=== PATIENT | male | born 1955 | race Caucasian/White ===

== ENCOUNTER 2019-03-17 23:41 | Inpatient (IN) ==
[2019-03-17] MEDS ORDERED: ZOFRAN ONE (23:49)
[2019-03-17] MEDS ORDERED: MORPHINE IV ONE (23:50)
[2019-03-17] MEDS ORDERED: ZOFRAN IV ONE (23:51)
[2019-03-18 00:04] LABS: BASO# 0.05 X1000 (0.0-0.2); BASO% 0.3 % (0.0-0.8); EOS# 0.38 X1000 (0.0-0.7); EOS% 2.5 % (0.0-10.0); HEMATOCRIT 43.8 % (42.0-52.0); HEMOGLOBIN 14.8 g/dL (14.0-18.0); IMM GRAN# 0.04 X1000 (0.0-0.04); IMM GRAN% 0.3 % (0.0-0.5); LYMPH# 3.18 X1000 (1.2-3.4); MCHC 33.8 g/dL (33-37); MONO# 1.93 X1000 (0.11-0.59); MONO% 12.7 % (1.7-9.3); MPV 9.2 FL (7.4-10.4); NEUT# 9.56 X1000 (1.4-6.5); NEUT% 63.2 % (42.2-75.2); PLT 287 X1000 (130-400); RBC 5.28 XMIL (4.7-6.1); RDW 14.5 % (11.5-14.5); WBC 15.14 X1000 (4.8-10.8)
--- NOTE | 2019-03-18 00:09 | PROVIDER DOCUMENTATION ---
This chart was entered by Millie Varela Scribe, acting as scribe for Иван Espinoza MD. HPI-Chest Pain - General Chief Complaint: Chest Pain Stated Complaint: CHEST PAINS Time Seen by Provider: 03/17/19 23:48 Source: patient Allergies/Adverse Reactions: Patient Allergies Allergy/AdvReac Type Severity Reaction Status Date / Time No Known Allergies Allergy Verified 03/17/19 23:52 - History of Present Illness-CP Nature of Presenting Problem: 63 yowm c/o severe 10/10 sharp back pain btw shoulder blades since 1100am today with associated dyspnea, abd pain and diaphoresis. 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 pt has htn, forgot to take rx tonight. pt denies dvt. pt is obese, nonsmoker, no alcohol or drug use. Location: reports: shoulder (btw shoulder blades), back, abdomen Quality of Pain: reports: sharp Severity in ED: mild Onset/Duration: this morning Timing: still present Context/Activities at Onset: reports: none Review of Systems - Adult - REVIEW OF SYSTEMS - ADULT Constitutional: reports: no symptoms reported Eyes: reports: no symptoms reported Ears, Nose, Mouth & Throat: reports: no symptoms reported Cardiovascular: reports: see HPI, chest pain. denies: heart murmur, irregular heart rate, orthopnea Respiratory: reports: see HPI, cough (minimal), dyspnea on exertion. denies: excessive sputum production, hemoptysis, wheezing Gastrointestinal: reports: see HPI, abdominal pain. denies: diarrhea, nausea, vomiting Genitourinary: reports: no symptoms reported Musculoskeletal: reports: see HPI, back pain. denies: joint pain, muscle weakness, neck pain Integumentary: reports: no symptoms reported Neurological: reports: no symptoms reported Psychiatric: reports: no symptoms reported Endocrine: reports: no symptoms reported Hematologic/Lymphatic: reports: no symptoms reported Allergic/Immunologic: reports: no symptoms reported All Other Systems: Reviewed and Negative Past History - Adult - PAST MEDICAL HISTORY-ADULT Review of Records: reports: Old Records Reviewed, Nursing Assessment Review, Medications Reviewed, Social history reviewed & non-contributory. Major Childhood Illnesses: reports: denies history Cardiovascular: reports: HTN Respiratory: reports: denies history Gastrointestinal: reports: denies history Obstetrical/Gynecological: reports: denies history Genitourinary: reports: denies history Musculoskeletal: reports: denies history Neurological: reports: denies history Endocrine/Immune: reports: denies history Other Conditions: reports: denies history - PRIOR SURGERIES/PROCEDURES Surgical/Procedure History: reports: none - IMMUNIZATION STATUS Childhood Immunizations: See Nurse Assessment Flu Vaccine: See Nurse Assessment - FAMILY HISTORY Family History: reviewed, not pertinent - SOCIAL HISTORY Smoking: non-smoker Substance Use: none/never Physical Exam-General - PHYSICAL EXAM-ADULT Initial Vital Signs Reviewed: Yes - CONSTITUTIONAL General Appearance: alert, moderate distress, obese, anxious. negative: cachetic, lethargic, slow to respond - EYES Eyes: PERRL/EOMI, pink conjunctivae - HEAD, EARS, NOSE, MOUTH & THROAT HENMT: normocephalic/atraumatic, moist mucous membranes, normal ENT inspection - NECK Neck: non-tender, full range of motion, supple, normal inspection - RESPIRATORY Respiratory: chest non-tender, lungs clear, normal breath sounds - CARDIOVASCULAR Cardiovascular: normal peripheral pulses, no edema, no gallop, no JVD, no murmur , tachycardia. negative: regular rate, rhythm, JVD, bradycardia - GASTROINTESTINAL (ABDOMEN) Abdominal Exam: normal bowel sounds, non tender, soft, no organomegaly, no pulsatile mass. negative: distended, guarding, rigid - LYMPHATIC Lymphatic: no adenopathy - MUSCULOSKELETAL Back Exam: normal inspection, no CVA tenderness, no vertebral tenderness. negative: decreased range of motion, ecchymosis, vertebral tenderness Extremity: normal capillary refill, swelling (swelling tenderness over left lower extremity), tenderness Peripheral Pulses: radial (R): 2+, radial (L): 2+ - SKIN Integumentary: normal color, normal turgor, warm/dry, diaphoresis. negative: ecchymosis, erythema, swelling, tenderness - NEUROLOGIC Neurologic: grossly normal, no motor/sensory deficits - PSYCHIATRIC Psych/Mental Status: oriented x 3, anxious. negative: normal mood/affect, normal thought content, normal thought process, depressed affect, tearful - HEART Score HEART Score: History: Slightly Suspicious HEART Score: ECG: Normal HEART Score: Age: 45-65 Years HEART Score: Risk Factors for Atherosclerotic Disease: > or = 3 Risk Factors or History of Atherosclerotic Disease HEART Score: Troponin: < or = Normal Limit Total HEART Score:: 3 Progress - PLAN OF CARE/RESULTS Progress/Plan/Lab Results: Vital Signs - 8 hr 03/17/19 23:46 03/18/19 00:41 03/18/19 01:16 Temperature 98.9 F Pulse Rate 129 H 120 H 114 H Respiratory Rate 34 H 23 20 Blood Pressure 115/98 135/91 140/83 O2 Sat by Pulse Oximetry 94 L 93 L 92 L 03/18/19 01:40 Temperature Pulse Rate 112 H Respiratory Rate 18 Blood Pressure 120/76 O2 Sat by Pulse Oximetry 92 L Laboratory Results - last 24 hr 03/17/19 03/17/19 03/17/19 23:45 23:45 23:45 WBC RBC Hgb Hct MCV MCH MCHC RDW Std Deviation Plt Count MPV Immature Gran % (Auto) Neut % (Auto) Lymph % (Auto) Wagoner % (Auto) Eos % (Auto) Baso % (Auto) Immature Gran # (Auto) Neut # (Auto) Lymph # (Auto) Wagoner # (Auto) Eos # (Auto) Baso # (Auto) PT 13.5 INR 0.98 D-Dimer, Quantitative 3.36 H Sodium Potassium Chloride Carbon Dioxide Anion Gap BUN Creatinine Estimated GFR/1.73 m2 BUN/Creatinine Ratio Glucose Calculated Osmolality Calcium Total Bilirubin AST ALT Alkaline Phosphatase Creatine Kinase 113 Troponin T < 0.010 Ugt-M-Pzkcaafxaxm Pept Total Protein Albumin Globulin Albumin/Globulin Ratio 03/17/19 03/17/19 03/17/19 23:45 23:45 23:45 WBC 15.14 H RBC 5.28 Hgb 14.8 Hct 43.8 MCV 83.0 MCH 28.0 MCHC 33.8 RDW Std Deviation 14.5 Plt Count 287 MPV 9.2 Immature Gran % (Auto) 0.3 Neut % (Auto) 63.2 Lymph % (Auto) 21.0 Wagoner % (Auto) 12.7 H Eos % (Auto) 2.5 Baso % (Auto) 0.3 Immature Gran # (Auto) 0.04 Neut # (Auto) 9.56 H Lymph # (Auto) 3.18 Wagoner # (Auto) 1.93 H Eos # (Auto) 0.38 Baso # (Auto) 0.05 PT INR D-Dimer, Quantitative Sodium 139 Potassium 4.0 Chloride 102 Carbon Dioxide 24 L Anion Gap 13 BUN 15 Creatinine 1.3 H Estimated GFR/1.73 m2 56 BUN/Creatinine Ratio 12 Glucose 115 H Calculated Osmolality 279 Calcium 9.0 Total Bilirubin 0.60 AST 16 ALT 19 Alkaline Phosphatase 92 Creatine Kinase Troponin T Tns-M-Telnlvninlz Pept 31 Total Protein 8.1 Albumin 4.3 Globulin 4.0 Albumin/Globulin Ratio 1.0 Orders Category Date Time Status Misc. NRSG Communication Order DIRECTED Care 03/18/19 00:38 Active Saline Loc NOW Care 03/17/19 23:57 Active CHEST-PORTABLE [RAD] Stat Exams 03/17/19 23:[address] ABD/PELVIS/PULM ARTERIES [CT] Stat Exams 03/18/19 00:16 Taken BNP [PRO B-NATRIURETIC PEPTIDE] Stat Lab 03/18/19 00:02 Completed CBC WITH ELECTRONIC DIFF [HEME] Stat Lab 03/17/19 23:45 Completed CK PROFILE [SP CHEM] Stat Lab 03/17/19 23:45 Completed CMP [COMPREHENSIVE METABOLIC PANEL] [CHEM] Stat Lab 03/17/19 23:45 Completed D-DIMER [COAG] Stat Lab 03/17/19 23:45 Completed PROTIME WITH INR [COAG] Stat Lab 03/17/19 23:45 Completed TROPONIN T Stat Lab 03/17/19 23:45 Completed Enoxaparin 1 mg/kg [Lovenox 1 mg/kg] Med 03/18/19 01:46 Discontinued 1 each SUBQ NOW ONE Enoxaparin [Lovenox] Med 03/18/19 01:48 Discontinued 100 mg .ROUTE .STK-MED ONE Enoxaparin [Lovenox] Med 03/18/19 01:48 Discontinued 40 mg .ROUTE .STK-MED ONE Morphine Med 03/17/19 23:50 Discontinued 4 mg IV NOW ONE Morphine Med 03/18/19 01:56 Discontinued 4 mg IV NOW ONE Ondansetron [Zofran] Med 03/17/19 23:49 Discontinued 4 mg .ROUTE .STK-MED ONE Ondansetron [Zofran] Med 03/17/19 23:51 Discontinued 4 mg IV NOW ONE Result Diagrams: 03/17/19 23:45 03/17/19 23:45 - EKG 1 Time of EKG reading by physician:: 23:49 EKG Read and Signed by:: Иван Espinoza EKG Interpretation (*Must complete 3 of following elements*): Abnormal Rate: 127 Rhythm: [facility]: left QRS: normal OR Interval: normal ST Wave: normal - CT/MRI 1 CT Study: Angiogram Impression: Abnormal, See EMR Report (Impression: moderate degree right-sided pulmonary rtery embolism. Right middle and lower lobe subsegmental atelectasis w/ipilateral trace pleural effusion. Evidence of prior granulomatous infection without active disease.) Comparison with other Films: no prior study 2 CT Study: Abdomen, Pelvis Impression: Abnormal, See EMR Report (Impression: 1. Moderate diverticulosis of the sigmoid colon. No diverticulitis. 2. No obstructive uropathy. No free intraperitoneal air or fluid. 3. Evidence of prior granulomas infection.) Comparison with other Films: no prior study - CONSULTS/PCP/HOSPITALIST Notification #1 *Consult/PCP/Hospitalist*: Dr. Albarran, hospitalist Time Discussed: 01:50 Reason/Comments: request transfter to [facility] ICU, no ICU beds at [place] Consult Disposition: Admit #2 Consult: Dr. Patel/ Hospitalist [facility] Time Discussed: 02:01 Consult Disposition: Admit (will admit pt) Departure - Departure Date of Disposition Decision: 03/18/19 Time of Disposition Decision: 01:52 DIAGNOSIS: Hypoxemia Pulmonary embolism Qualifiers: Pulmonary embolism type: unspecified Chronicity: acute Acute cor pulmonale presence: without acute cor pulmonale Qualified Code(s): I26.99 - Other pulmo nary embolism without acute cor pulmonale Disposition: ADMITTED INPATIENT 09 Certified Medical Emergency: Emergent Condition: Stable Referrals and Follow-Ups: None,PCP [Primary Care Provider] - - Critical Care Note This patient required my direct & personal management of CC.: Yes Attestation - Physician/ JUNITO Attestation Patient care was provided by Advanced Practice Provider:: No The physician spent face to face time with patient:: Yes Advanced Practice Provider documentation review:: Supervising physician onsite and consulted in the evaluation and care of this patient. The physician did have a face to face encounter with the patient. This chart was documented by the indicated scribe, (Millie Varela Scribe) and accurately reflects the services I performed and decisions made by me, Иван Espinoza MD, as attested by the provider's signature.
[2019-03-18 00:16] LABS: ALBUMIN 4.3 g/dL (3.5-5.0); CREATININE 1.3 mg/dL (0.7-1.2); TOTAL BILIRUBIN 0.6 mg/dL (0.20-1.00); TOTAL PROTEIN 8.1 g/dL (6.3-8.3)
[2019-03-18 00:31] LABS: INR 0.98; PROTIME 13.5 Seconds (11.0-16.0)
[2019-03-18] MEDS ORDERED: LOVENOX 1 MG/KG SUBQ ONE (01:46)
[2019-03-18] MEDS ORDERED: LOVENOX ONE ×2 (01:48)
[2019-03-18] MEDS ORDERED: MORPHINE IV ONE (01:56)
[2019-03-18] MEDS ORDERED: MORPHINE IV PRN ×2 (02:03→04:08)
[2019-03-18] MEDS ORDERED: ZOFRAN IV PRN (02:03)
[2019-03-18] MEDS ORDERED: NITROGLYCERIN SL PRN (04:10)
[2019-03-18 05:16] LABS: URINE SOURCE CATH
[2019-03-18 05:21] LABS: BILIRUBIN URINE NEGATIVE (NEGATIVE); BLOOD URINE NEGATIVE (NEGATIVE); COLOR YELLOW; GLUCOSE URINE NEGATIVE (NEGATIVE); KETONE URINE TRACE mg/dL (NEGATIVE); LEUKOCYTES URINE NEGATIVE (NEGATIVE); NITRITE URINE NEGATIVE (NEGATIVE); PH URINE 5.5; PROTEIN URINE TRACE mg/dL (NEGATIVE); TURBIDITY URINE CLEAR (CLEAR); UROBILINOGEN URINE NORMAL (NORMAL)
[2019-03-18 05:22] LABS: UR EPITHELIAL CELLS <10 /HPF (<10); URINE BACTERIA NEGATIVE /HPF; URINE RBC <10 /HPF (<10); URINE WBC <10 /HPF (<10)
--- NOTE | 2019-03-18 05:52 | HISTORY AND PHYSICAL ---
PRIMARY CARE PHYSICIAN: Dr. Wood at the [facility]. CHIEF COMPLAINT: Shortness of breath and chest pain x1 day. HISTORY OF PRESENTING ILLNESS: A 63-year-old male with a history of hypertension and gout who presented to emergency department at [facility] with complaints of chest pain and shortness of breath for the past day. The patient states that his left lower extremity was also swelling for the past month or so. He was evaluated there. He had imaging done which did show a right-sided PE. Due to lack of ICU beds there, patient was transferred to [facility] for further evaluation and management. At the time of my examination, patient states that he still was having some chest discomfort and shortness of breath, but he denied any headache, fever, chills, nausea, vomiting, diarrhea, hemoptysis, melena or weight changes. PAST MEDICAL HISTORY: Includes hypertension and gout. PAST SURGICAL HISTORY: None. ALLERGIES: No known drug allergies. CURRENT MEDICATIONS: He does not recall and nursing staff will reconcile. SOCIAL HISTORY: No history of smoking, alcohol or illicit drug use. FAMILY HISTORY: No history of coronary disease. REVIEW OF SYSTEMS: Fourteen point review of systems as listed in HPI. Other systems negative. PHYSICAL EXAMINATION: GENERAL: Cooperative, friendly male. He is resting more comfortably now. VITAL SIGNS: Temperature 98.9 degrees, pulse 103, respirations 24, blood pressure 133/79. HEENT: Atraumatic, normocephalic. Extraocular movements intact. PERRLA. NECK: No masses. CHEST: Bibasilar rales. CARDIOVASCULAR: Regular rate and rhythm. ABDOMEN: Soft, obese, positive bowel sounds. EXTREMITIES: Left leg, there is moderate edema. GENITOURINARY: No bladder distention. SKIN: Warm. LABORATORIES AND STUDIES: WBCs 15.14, hemoglobin 14.8, hematocrit 43.8, platelets 287,000. Sodium 139, potassium 4.0, chloride 102, CO2 is 24, BUN is 15, creatinine is 1.3, glucose 115. Troponin 0.010. ASSESSMENT: A 63-year-old male with a history of hypertension and gout who had initially presented to [facility] with complaint of chest pain and shortness of breath. The patient had imaging done there which did show a pulmonary embolism. Subsequently, he was transferred to [facility] due to lack of ICU beds. The patient will be started on anticoagulation and managed here. 1. Acute pulmonary thromboembolism. 2. Hypertension. 3. Gout. PLAN: 1. The patient is admitted to ICU. 2. Continue with anticoagulation with Lovenox. 3. We will consult evidence technician. 4. We will put patient on adequate pain control and use supplemental oxygen. 5. We will monitor blood pressure closely. 6. We will continue to follow, reassess and make further recommendation based on patient's clinical course. cc: Arvin Patel MD
--- NOTE | 2019-03-18 05:55 | EKG Report ---
Test Performed on : 03/18/2019 02:52:45 AM Test Reason : CHEST PAIN Blood Pressure : / mmHG Vent. Rate : 102 BPM Atrial Rate : 102 BPM P-R Int : 172 ms QRS Dur : 102 ms QT Int : 352 ms P-R-T Axes : 038 -27 014 degrees QTc Int : 458 ms Sinus tachycardia. Otherwise normal ECG When compared with ECG of 17-MAR-2019 23:49, (Unconfirmed) No significant change was found Confirmed by Edie Duarte MD ([id number]) on 03/18/2019 4:11:15 PM
--- NOTE | 2019-03-18 07:06 | Diag Imaging Result Doc PS360 ---
EXAM: CHEST-PORTABLE INDICATION: chest pain TECHNIQUE: One view COMPARISON: None. FINDINGS: The inspiration is suboptimal. There is mild subsegmental atelectasis and/or infiltrate at the left lung base. No other discrete consolidation is identified. There is no discrete pleural fluid collection or pneumothorax. The cardiomediastinal silhouette and central vasculature are grossly unremarkable. IMPRESSION: Low lung volumes and mild left basilar subsegmental atelectasis. No definite acute pathology by plain radiograph, otherwise. Electronically signed by Benjamin Varela 03/18/2019 7:04 AM
--- NOTE | 2019-03-18 07:10 | Diag Imaging Result Doc PS360 ---
EXAM: CT ABD/PELVIS/PULM ARTERIES 03/18/2019 HISTORY: chest pain TECHNIQUE: This exam was performed using automated exposure control, adjustment of mA or kV according to patient size, and/or use of iterative reconstruction technique. COMMENT: There are no previous studies available for comparison. Thorax: 3-D MIPS were performed. There is a central filling defect in the right main pulmonary artery. This extends into the interlobar and segmental arteries posteriorly. There is also filling defect in the right middle lobe artery and the right upper lobe. There is some motion artifact. There is a small right pleural effusion. There is ill-defined opacity in the right upper lobe medially and in the right middle lobe anteriorly and inferiorly. There is also some ill-defined opacity in both lower lobes. These findings may be related to atelectasis or pneumonia. There is no evidence of significant adenopathy. There is no evidence of right ventricular strain. The regional skeleton is intact. ABDOMEN: There are granulomata in the spleen. The spleen is enlarged measuring 14 cm in transverse dimension. There are no gallstones. The adrenal glands are not enlarged. The pancreas is unremarkable. The kidneys are without evidence of hydronephrosis or solid mass. There are cortical cysts bilaterally. There is no evidence of abdominal aortic aneurysm or significant adenopathy. There is no evidence of bowel obstruction. There is no evidence of appendicitis. There is diverticulosis in the sigmoid colon without evidence of diverticulitis. The urinary bladder is not distended. There is no evidence of acute bony abnormality in the regional skeleton. IMPRESSION: 1. Pulmonary emboli on the right as described. Most likely there is secondary atelectasis which is more prominent on the right than the left. 2. No evidence of acute disease in the abdomen or pelvis. Electronically signed by Kar Khan 03/18/2019 7:08 AM
--- NOTE | 2019-03-18 08:21 | EKG Report ---
Test Performed on : 03/17/2019 11:49:43 PM Test Reason : ER Blood Pressure : / mmHG Vent. Rate : 127 BPM Atrial Rate : 127 BPM P-R Int : 156 ms QRS Dur : 102 ms QT Int : 308 ms P-R-T Axes : 044 -40 028 degrees QTc Int : 447 ms Sinus tachycardia. Left axis deviation Abnormal ECG No previous ECGs available Unconfirmed Result
[2019-03-18 09:37] LABS: ALLEN TEST YES; BE 0.3 mmoll (-3.0-3.0); BLOOD TYPE ARTERIAL; HCO3-(ACT) 25.1 mmoll (20.0-26.0); METHB 1.2 % (0.0-1.5); MODALITY CANNULA; O2(CT) 18.1 mL/dL (15.0-23.0); O2HB 94.6 % (95.0-99.0); PCO2(98.6) 48 mmHg (35-45); PO2(98.6) 82 mmHg (60-100); SAMPLE BLOOD; SAO2 97.4 % (95.0-100.0); THB 13.6 g/dL (11.5-17.4); pH(98.6) 7.35 (7.35-7.45)
--- NOTE | 2019-03-18 11:45 | PROGRESS NOTE ---
DATE: 03/18/2019 SUBJECTIVE: The patient is stable. No major complaints. OBJECTIVE: Blood pressure is 105/76, heart rate is 84, respiratory rate of 15, temperature was 97.2, 95 percent on 6 L. Cardiovascular: Regular rate and rhythm. Pulmonary: Bilateral breath sounds diminished at the bases. GI: Soft, nontender, nondistended. Bowel sounds were positive. Laboratory Data: White count is 15. Creatinine 1.3. I do not have any new data. ASSESSMENT AND PLAN: Pulmonary embolism, deep venous thrombosis. He has got a large deep venous thrombosis. We will continue anticoagulation. He does not have any absolute indications for tPA. His blood pressure is stable. He is tachycardic but stable. We will pursue a hypercoagulable workup, he was sedentary. He is obese, maybe his risk factors for that but we are going to continue to see how he does. We will continue to follow closely. Awaiting Dr. Sun's recommendations. May also consider intra-arterial tPA, although again, he does not have very clear indication as such. cc: Vince Scales MD
[2019-03-18] MEDS: NS 1,000 ML IV SCH ×2 (12:15→21:34)
--- NOTE | 2019-03-18 13:26 | ECHO REPORT ---
ORDER DATE: 03/18/2019 INTERPRETING PHYSICIAN: Ventura Galvan MD PROCEDURE: 2D echocardiogram. ECHOCARDIOGRAPHIC MEASUREMENTS: 1. Interventricular septum 1.1 cm. 2. Left ventricular posterior wall 1.1. 3. Diastolic diameter 5.5 cm 4. Aorta 4.2 cm. SUMMARY OF THE 2-DIMENSIONAL IMAGIN. Aortic valve leaflets are trileaflet. 2. Pulmonic valve was normal. 3. Tricuspid valve was normal. 4. Mitral valve was normal. 5. There was mild tricuspid regurgitation. 6. Peak velocity across the tricuspid valve was 2.5 m/sec. 7. Pulmonary artery systolic pressure of 35 mmHg. 8. Normal left ventricular cavity size. 9. Estimated ejection fraction of 60%. 10. Ascending aorta was dilated. 11. There is no aortic stenosis or regurgitation. 12. This is a technically limited study as Dopplers were not obtained. 13. There is no pericardial effusion or obvious intracardiac mass or thrombus seen. cc: MD Arvin Enriquez MD
--- NOTE | 2019-03-18 13:55 | EKG Report ---
Test Performed on : 03/18/2019 11:59:36 AM Test Reason : pe Blood Pressure : / mmHG Vent. Rate : 077 BPM Atrial Rate : 077 BPM P-R Int : 172 ms QRS Dur : 114 ms QT Int : 390 ms P-R-T Axes : 042 -23 008 degrees QTc Int : 441 ms Normal sinus rhythm. Normal ECG When compared with ECG of 18-MAR-2019 02:52, (Unconfirmed) No significant change was found Confirmed by Edie Duarte MD ([id number]) on 03/18/2019 4:12:02 PM
[2019-03-18] MEDS: LOVENOX SUBQ SCH (14:57)
--- NOTE | 2019-03-18 19:33 | CONSULTATION ---
DATE OF CONSULTATION: 03/18/2019 REQUESTING PROVIDER: Dr. Arvin Patel. REASON FOR CONSULTATION: Pulmonary embolism, dyspnea. HISTORY OF PRESENT ILLNESS: This is a 63-year-old male, with a medical history of hypertension, gout, hypothyroidism, and morbid obesity. He presented to the [facility] ER last night with acute severe sharp back pain between the shoulder blades, dyspnea, abdominal pain and diaphoresis. CT abdomen, pelvis, and pulmonary arteries showed pulmonary emboli on the right. Most likely, there is secondary atelectasis which is more prominent on the right than the left. He has been admitted to ICU in our facility for further evaluation and management. Patient currently is lying on bed, complaining of some mild sharp pain on the right shoulder 2-3/10 with some mild nausea. He apparently has left lower extremity pitting edema over 1 month. He reports some dry cough, dyspnea on exertion, but no fever, wheezing, hemoptysis, or palpitation. PAST MEDICAL HISTORY: 1. Hypertension. 2. Gout. 3. Hypothyroidism. 4. Morbid obesity. Current BMI 41.7. PAST SURGICAL HISTORY: None. SOCIAL HISTORY: Patient lives alone at home. He has no history of alcohol, tobacco, or illicit drug use. FAMILY HISTORY: Reviewed and noncontributory. ALLERGIES: No known drug allergies. REVIEW OF SYSTEMS: A 10-point review of systems was conducted and the pertinents are listed within the HPI, otherwise noncontributory. PHYSICAL EXAMINATION: Vital Signs: Temperature 97.2, blood pressure 96/68, pulse 85, respiratory rate 16, oxygen saturation 93% on nasal cannula at 6. General: Morbidly obese. Appears younger than stated age. Cooperative and pleasant. HEENT: Atraumatic, normocephalic. Trachea midline. Mucosa pink and slightly dry. Respiratory: Even and unlabored. Symmetrical excursion. Auscultation revealed diminished breathing sounds bibasilarly with early inspiratory crackles bibasilarly. Cardiovascular: Regular rate and rhythm. Gastrointestinal: Soft, nontender, obese. Normoactive bowel sounds in all 4 quadrants. Extremities: Left lower extremity pitting edema 1+. No cyanosis. No clubbing. Dorsalis pedis 1+ bilaterally. Neurologic: Alert and oriented x3. Speech fluent. Follows commands. LAB DATA: PH 7.35, pCO2 48, pO2 82, HC03 25.1, base excess 0.3, oxyhemoglobin 94.6. IMAGING DATA: See HPI. ASSESSMENT: This is a 63-year-old male with a medical history of hypertension, gout, hypothyroidism, and morbid obesity. He has been admitted to the ICU since last night with acute pulmonary thromboembolism. 1. Acute hypoxic respiratory failure. 2. Pulmonary emboli on the right. 3. DVT on the right lower extremity. Reported by the nurse, but the doppler report not posted yet. PLAN: 1. Continue supplemental oxygen as needed. 2. Continue Lovenox 120 mg twice a day. 3. Follow up with ABG, CBC, and BMP; chest x-ray if indicated. 4. Further recommendations pending hospital course. Thank you for the courtesy of this consult. Dictated by BRAD Cintron for Bee Sun MD cc: BRAD Cintron MD [facility]
[2019-03-19 04:39] LABS: ALLEN TEST YES; BE -1.2 mmoll (-3.0-3.0); BLOOD TYPE ARTERIAL; HCO3-(ACT) 23.9 mmoll (20.0-26.0); O2(CT) 20.7 mL/dL (15.0-23.0); O2HB 93.3 % (95.0-99.0); PCO2(98.6) 45 mmHg (35-45); PO2(98.6) 72 mmHg (60-100); SAMPLE BLOOD; SAO2 95.7 % (95.0-100.0); THB 15.8 g/dL (11.5-17.4); pH(98.6) 7.35 (7.35-7.45)
[2019-03-19 04:40] LABS: MODALITY CANNULA
[2019-03-19] MEDS: LOVENOX SUBQ SCH ×2 (06:04→18:13)
[2019-03-19 06:18] LABS: SODIUM 140 mmol/L (136-145)
[2019-03-19 06:19] LABS: AGAP 12; BUN 11 mg/dL (8-22); CALCIUM 8.7 mg/dL (8.8-10.2); CHLORIDE 105 mmol/L (98-107); COSMO 279; ESTIMATED GFR > 60; GLUCOSE 103 mg/dL (70-104); POTASSIUM 4.2 mmol/L (3.5-5.1); TCO2 23 mmol/L (25-35)
[2019-03-19 07:10] LABS: BASO# 0.02 X1000 (0.0-0.2); BASO% 0.2 % (0.0-0.8); EOS# 0.19 X1000 (0.0-0.7); HEMATOCRIT 39.7 % (42.0-52.0); HEMOGLOBIN 12.7 g/dL (14.0-18.0); IMM GRAN# 0.02 X1000 (0.0-0.04); IMM GRAN% 0.2 % (0.0-0.5); LYMPH% 12.8 % (20.5-51.1); MCH 27.4 PG (27-31); MCV 85.7 FL (81-99); MONO# 1.01 X1000 (0.11-0.59); MONO% 10.7 % (1.7-9.3); MPV 9.7 FL (7.4-10.4); NEUT# 6.97 X1000 (1.4-6.5); NEUT% 74.1 % (42.2-75.2); PLT 195 X1000 (130-400); RBC 4.63 XMIL (4.7-6.1); RDW 14.4 % (11.5-14.5); WBC 9.41 X1000 (4.8-10.8)
[2019-03-19] MEDS: NS 1,000 ML IV SCH ×2 (07:48→18:13)
--- NOTE | 2019-03-19 14:43 | Extremity Venous Study ---
PROCEDURE NAME: Venous U/S Bilateral Legs - 03/18/2019 WOOD BUCKER: Justus. REQUESTING PHYSICIAN: Jorge. INDICATIONS: Edema. FINDINGS: Deep superficial veins bilateral lower extremities visualized. In the left lower extremity there is acute DVT noted at the common femoral, femoral, popliteal, posterior tibial and peroneal veins. In the right lower extremity there is no evidence of deep venous thrombus. SUMMARY: Extensive DVT in the left lower extremity with maintained patency. cc: MD Arvin Hua MD
[2019-03-19] MEDS ORDERED: TYLENOL PO PRN (14:49)
--- NOTE | 2019-03-19 15:12 | PROGRESS NOTE ---
DATE: 03/19/2019 SUBJECTIVE: Patient had no major complaints. OBJECTIVE: Vital Signs: Blood pressure is 135/76, heart rate of 87, respiratory 17, temperature of 93 degrees, satting 94% on 3 L. Cardiovascular: Regular rate and rhythm. Pulmonary: Bilateral breath sounds. Clear to auscultation. GI: Soft, nontender, nondistended. Bowel sounds are positive. LABORATORY DATA: White count 9, hemoglobin and hematocrit 12 and 39, platelets 195. Basic was normal. PROBLEM LIST: 1. Acute pulmonary embolus, right pulmonary embolus with evidence of hypoxia and some degree of cardiac strain. He is doing okay. We will continue anticoagulation and transition him to novel oral anticoagulant, and we will continue to follow. 2. Deep vein thrombosis of the left lower extremity. We will continue treatment and follow as I think we start probably getting up there. 3. Acute respiratory failure. I anticipate unfortunately he may need some oxygen at discharge if we are going to work on trying to get that a little bit better. Still work on trying to get him up a little bit and follow. DISPOSITION: Pending his clinical status, we will continue to monitor closely. cc: Vince Scales MD
[2019-03-20] MEDS: NS 1,000 ML IV SCH (02:17)
[2019-03-20 05:17] LABS: BASO# 0.03 X1000 (0.0-0.2); BASO% 0.4 % (0.0-0.8); EOS# 0.26 X1000 (0.0-0.7); EOS% 3.7 % (0.0-10.0); HEMATOCRIT 37.7 % (42.0-52.0); HEMOGLOBIN 12.4 g/dL (14.0-18.0); IMM GRAN# 0.03 X1000 (0.0-0.04); IMM GRAN% 0.4 % (0.0-0.5); LYMPH# 1.23 X1000 (1.2-3.4); LYMPH% 17.5 % (20.5-51.1); MCH 27.9 PG (27-31); MCHC 32.9 g/dL (33-37); MCV 84.9 FL (81-99); MONO% 9.9 % (1.7-9.3); MPV 9.1 FL (7.4-10.4); NEUT# 4.79 X1000 (1.4-6.5); NEUT% 68.1 % (42.2-75.2); PLT 221 X1000 (130-400); RBC 4.44 XMIL (4.7-6.1); RDW 14.2 % (11.5-14.5); WBC 7.04 X1000 (4.8-10.8)
[2019-03-20 05:38] LABS: AGAP 11; BUN 12 mg/dL (8-22); CALCIUM 8.5 mg/dL (8.8-10.2); CHLORIDE 106 mmol/L (98-107); COSMO 279; ESTIMATED GFR > 60; GLUCOSE 93 mg/dL (70-104); POTASSIUM 3.7 mmol/L (3.5-5.1); SODIUM 140 mmol/L (136-145); TCO2 23 mmol/L (25-35)
[2019-03-20] MEDS: LOVENOX SUBQ SCH (06:21)
[2019-03-20] MEDS ORDERED: SOLU-MEDROL IV ONE (09:50)
[2019-03-20] MEDS: COLCRYS PO SCH ×3 (10:28→20:08)
--- NOTE | 2019-03-20 14:15 | PROGRESS NOTE ---
DATE: 03/20/2019 SUBJECTIVE: Patient has no major complaint. OBJECTIVE: Vital signs: Blood pressure 155/87, heart rate 85, respiratory 17, temperature 97.6 degrees, 98% on 3 L. Cardiovascular: Regular rate and rhythm. Pulmonary: Bilateral breath sounds clear to auscultation. Gastrointestinal: Abdomen soft, nontender, nondistended. Bowel sounds are positive. LABORATORY DATA: White count 7, hemoglobin and hematocrit 12 and 37, platelets 221,000. Basic was normal. PROBLEM LIST: 1. Pulmonary embolism, deep venous thrombosis. He is stabilizing. I think we can switch him back to Eliquis or switch him to Eliquis and follow. 2. Gouty arthritis of his 1st toe. We will start colchicine. Discussed that allopurinol would be not advised right now until his acute flare occurs. 3. Acute hypoxic respiratory failure. We continue to wean O2 but I anticipate he will probably need O2 to go home with. DISPOSITION: I anticipate discharge in the next 1 to 2 days, possibly transfer to the floor today. We will see how he does. cc: Vince Scales MD
[2019-03-20] MEDS: ELIQUIS PO SCH ×2 (19:52→20:08)
[2019-03-21] MEDS: ELIQUIS PO SCH (08:14)
[2019-03-21] MEDS: COLCRYS PO SCH (08:14)
[2019-03-21 08:25] LABS: HEMATOCRIT 39.6 % (42.0-52.0); MCH 27.4 PG (27-31); MCHC 32.8 g/dL (33-37); MCV 83.5 FL (81-99); MPV 9.1 FL (7.4-10.4); RBC 4.74 XMIL (4.7-6.1); WBC 9.43 X1000 (4.8-10.8)
[2019-03-21 08:40] LABS: AGAP 11; BUN 14 mg/dL (8-22); CALCIUM 9.2 mg/dL (8.8-10.2); CHLORIDE 105 mmol/L (98-107); COSMO 280; ESTIMATED GFR > 60; GLUCOSE 100 mg/dL (70-104); POTASSIUM 3.5 mmol/L (3.5-5.1); SODIUM 140 mmol/L (136-145); TCO2 24 mmol/L (25-35); URIC ACID 5.5 mg/dL (3.4-7.0)
[2019-03-21] MEDS ORDERED: NORVASC PO SCH (12:30)
[2019-03-21 15:57] VITALS: BP 143/81
--- NOTE | 2019-03-22 05:30 | DISCHARGE SUMMARY ---
ADMISSION DATE: 03/18/2019 DISCHARGE DATE: 03/21/2019 DIAGNOSES: 1. Acute pulmonary thromboembolism. 2. Hypertension. 3. Gout. 4. Acute hypoxic respiratory failure, resolved. DIAGNOSTICS: 1. Chest x-ray revealed low lung volumes with mild left basilar subsegmental atelectasis. 2. CTA pulmonary arteries revealed pulmonary emboli on the right with secondary atelectasis more prominent on the right than left. No evidence of acute disease in the abdomen or pelvis. 3. Echocardiogram revealed EF of 60%. There is no aortic stenosis or regurgitation. No pericardial effusion or obvious intracardiac mass or thrombus seen. 4. Bilateral lower extremity Doppler reveals extensive DVT in the left lower extremity with maintained patency. CONSULTS: Dr. Sun, pulmonology. HOSPITAL COURSE: Mr. Simpson presented to the emergency room complaining of shortness of breath and chest pain. He was found to have extensive pulmonary embolus on the right. He initially received anticoagulation with Lovenox 1 mg/kg which he was transitioned over to Eliquis orally. He did have acute hypoxic respiratory failure. Oxygen was supplemented and he improved. process worker checked in with the [facility] in [place] where his primary care physician is. They stated the Eliquis did not require preauthorization through them and it has no co-pay. Prescription was faxed to Dr. Wood at the [facility]. He did have gouty arthritis to his 1st toe. Colchicine was started. DISCHARGE VITAL SIGNS: Blood pressure is 145/78 with heart rate of 79, respirations 18, temperature is 97.4 degrees oral. DISCHARGE MEDICATIONS: 1. Colchicine 0.6 mg p.o. b.i.d.. 2. Eliquis. He will take 10 mg p.o. b.i.d. for 14 days then Eliquis 5 mg p.o. b.i.d.. 3. Norvasc 2.5 mg p.o. b.i.d. FOLLOWUP: 1. He is to call to follow up with Dr. Sun as needed. 2. He needs to call his primary care physician at the [facility] in the morning to review with his office the events of this hospitalization and schedule a followup visit. 3. He has been instructed to call to be seen sooner or return to the emergency room for any syncope, dizziness, recurring chest pain, palpitations, any shortness of breath, cough, productive cough, a temperature greater than 101, chills, night sweats, any nausea, vomiting, diarrhea, constipation, black or bloody vomitus or stools, hematuria, dysuria, frequency, urgency. 4. Has been encouraged to watch for frequent bruising, his gums bleeding, dark urine, or black or bloody stool and to call his doctor immediately for these. 5. He is being discharged home in stable condition with family members. TIME SPENT: This is a greater than 30 minute discharge. Dictated by BRAD Loco for Robinson Huynh MD cc: BRAD Loco MD
[2019-03-22] MEDS ORDERED: SYNTHROID PO SCH (07:00)
== END 2019-03-21 19:10 | disposition home or self-care (01) | DRG 175 ==
LOC: P.ED 23:41 → ICU 03-18 02:55 → SUATTDRO 03-18 02:55 → 3S 03-18 16:48 → 3N 03-20 20:09
PROVIDERS: ATTEND Internal Medicine